=== PATIENT | male | born 1995 | race African-American/Black ===

== ENCOUNTER 2017-07-28 14:47 | Emergency (ER) | payer OTHER, MEDICAID ==
[~2017-07-28] VITALS: Ht 182.9 cm; Wt 82.1 kg
[2017-07-28 14:56] VITALS: Ht 182.9 cm; Wt 82.1 kg
[2017-07-28 16:54] VITALS: BP 129/88
== END 2017-07-28 16:54 | disposition home or self-care (01) ==
LOC: ED 14:47
DX: B34.9 Viral infection, unspecified (principal); E11.9 Type 2 diabetes mellitus without complications; I10 Essential (primary) hypertension
CPT/HCPCS: 82962

== ENCOUNTER 2017-11-03 20:59 | Emergency (ER) | payer OTHER, MEDICAID ==
[~2017-11-03] VITALS: Ht 182.9 cm; Wt 80.7 kg
[2017-11-03 21:24] VITALS: Ht 182.9 cm; Wt 80.7 kg
[2017-11-03 23:43] VITALS: BP 140/91
== END 2017-11-03 23:43 | disposition home or self-care (01) ==
LOC: ED 20:59
DX: S81.811A Laceration without foreign body, right lower leg, initial encounter (principal); I10 Essential (primary) hypertension; E11.9 Type 2 diabetes mellitus without complications; W22.8XXA Striking against or struck by other objects, initial encounter; Y93.89 Activity, other specified; Y92.89 Other specified places as the place of occurrence of the external cause; Y99.0 Civilian activity done for income or pay
CPT/HCPCS: 90715; Q0092

== ENCOUNTER 2017-11-05 13:22 | Emergency (ER) | payer OTHER, MEDICAID ==
[~2017-11-05] VITALS: Ht 182.9 cm; Wt 77.1 kg
[2017-11-05 13:31] VITALS: BP 132/92; Ht 182.9 cm; Wt 77.1 kg
== END 2017-11-05 14:50 | disposition left against medical advice (07) ==
LOC: ED 13:22
DX: Z53.21 Procedure and treatment not carried out due to patient leaving prior to being seen by health care provider (principal)

== ENCOUNTER 2017-11-06 12:33 | Emergency (ER) | payer OTHER, MEDICAID ==
[~2017-11-06] VITALS: Ht 182.9 cm; Wt 76.2 kg
[2017-11-06 12:48] VITALS: Ht 182.9 cm; Wt 76.2 kg
== END 2017-11-06 13:10 | disposition home or self-care (01) ==
LOC: ED 12:33
DX: S81.811D Laceration without foreign body, right lower leg, subsequent encounter (principal); I10 Essential (primary) hypertension; E11.9 Type 2 diabetes mellitus without complications; X58.XXXD Exposure to other specified factors, subsequent encounter

== ENCOUNTER 2017-11-14 22:56 | Emergency (ER) | payer OTHER, MEDICAID ==
[~2017-11-14] VITALS: Ht 182.9 cm; Wt 88.0 kg
[2017-11-14 23:03] VITALS: Ht 182.9 cm; Wt 88.0 kg
[2017-11-14 23:23] VITALS: BP 133/79
== END 2017-11-14 23:23 | disposition home or self-care (01) ==
LOC: ED 22:56
DX: S81.811D Laceration without foreign body, right lower leg, subsequent encounter (principal); Y93.B1 Activity, exercise machines primarily for muscle strengthening; I10 Essential (primary) hypertension; E11.9 Type 2 diabetes mellitus without complications

== ENCOUNTER 2019-06-14 17:04 | Emergency (ER) | payer OTHER, MEDICAID ==
[~2019-06-14] VITALS: Ht 182.9 cm; Wt 80.3 kg
[2019-06-14 17:33] VITALS: Ht 182.9 cm; Wt 80.3 kg
[2019-06-14 18:10] LABS: BASOPHIL % 0.5 % (0-2); PLATELET COUNT 316 x10^3mcL (130-400); RED CELL DISTRIBUTION WIDTH 12.7 % (11.5-14.5)
[2019-06-14 18:19] LABS: CARBON DIOXIDE 12.4 mmol/L (21-32); CREATININE SERUM 1.9 mg/dL (0.7-1.3)
[2019-06-14 18:34] LABS: ALBUMIN 4.6 g/dL (3.4-5.0); BILIRUBIN TOTAL 0.6 mg/dL (0.20-1.00)
[2019-06-14 18:36] LABS: TOTAL PROTEIN, SERUM 8.6 g/dL (6.4-8.2)
[2019-06-14] MEDS ORDERED: AMLODIPINE BESYL5 M2 PO (21:55)
[2019-06-14] MEDS ORDERED: ZESTRIL10 MG PO (21:56)
[2019-06-14] MEDS ORDERED: LANTUS100 U/ML SQ (21:57)
[2019-06-14] MEDS ORDERED: INSULIN SYRING1 EA29 SQ (21:58)
[2019-06-14 22:01] LABS: UA SPECIFIC GRAVITY 1.025 (1.005-1.035); microscopic required? YES; urine erythrocyte TRACE (NEGATIVE)
[2019-06-14 22:11] LABS: AMYLASE 73 U/L (25-115); LIPASE 73 IU/L (73-393)
[2019-06-14 22:12] LABS: AMPHETAMINE QUAL UR NONE DETECTED (See below)
[2019-06-15 03:41] LABS: CARBON DIOXIDE 15.7 mmol/L (21-32); POTASSIUM SERUM 5.1 mmol/L (3.5-5.1)
[2019-06-15 03:42] LABS: CALCIUM 8.7 mg/dL (8.5-10.1); CREATININE SERUM 1.7 mg/dL (0.7-1.3); PHOSPHOROUS 4.1 mg/dL (2.5-4.9)
[2019-06-15 04:48] LABS: CALCIUM 8.4 mg/dL (8.5-10.1); CARBON DIOXIDE 17.7 mmol/L (21-32); CREATININE SERUM 1.6 mg/dL (0.7-1.3); POTASSIUM SERUM 5.4 mmol/L (3.5-5.1)
[2019-06-15 04:51] LABS: MAGNESIUM 1.9 mg/dL (1.8-2.4); PHOSPHOROUS 3.3 mg/dL (2.5-4.9)
[2019-06-15 08:41] LABS: CALCIUM 8.2 mg/dL (8.5-10.1); CARBON DIOXIDE 19.4 mmol/L (21-32); CREATININE SERUM 1.6 mg/dL (0.7-1.3); MAGNESIUM 1.9 mg/dL (1.8-2.4); PHOSPHOROUS 3.2 mg/dL (2.5-4.9); POTASSIUM SERUM 4.5 mmol/L (3.5-5.1)
[2019-06-15 12:59] LABS: CARBON DIOXIDE 18.6 mmol/L (21-32); CHLORIDE SERUM 104 mmol/L (98-107); CREATININE SERUM 1.5 mg/dL (0.7-1.3); GFR1 > 60 mL/min; GLUCOSE SERUM 222 mg/dL (74-106); MAGNESIUM 1.8 mg/dL (1.8-2.4); PHOSPHOROUS 3.3 mg/dL (2.5-4.9); POTASSIUM SERUM 4.6 mmol/L (3.5-5.1); SODIUM SERUM 137 mmol/L (136-145)
[2019-06-15 13:51] VITALS: BP 106/48
== END 2019-06-15 15:25 | disposition left against medical advice (07) ==
LOC: ED 17:04 → IC 21:00 → ED 21:00 → IC 06-15 15:25
PROVIDERS: Emergency Medicine; Student in an Organized Health Care Education/Training Program
DX: E10.10 Type 1 diabetes mellitus with ketoacidosis without coma (principal); N17.0 Acute kidney failure with tubular necrosis; I10 Essential (primary) hypertension; Z79.4 Long term (current) use of insulin; Z68.23 Body mass index [BMI] 23.0-23.9, adult
CPT/HCPCS: 36600; 82962; 87804; G0378; J1815; J2765; J7030; Q0092